=== PATIENT | male | born 1970 | race Caucasian/White ===

== ENCOUNTER 2024-12-02 08:45 | Outpatient (CLI) | payer OTHER, SELFPAY ==
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
--- OUTSIDE RECORDS SUMMARY | 2024-12-02 09:00 | XMS_ITS | Clinical Summary ---
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 Gender Identity Not on file Sexual Orientation Not on file Plan of Treatment Health Maintenance Due Date Last Done Comments Hepatitis C Virus (HCV) Screening 1970 Hepatitis B Immunization (1 of 3 - 19+ 3-dose series) 10/16/1991 Colonoscopy 2017 Colorectal Cancer Screening 2017 Cologuard 2022 Immunochemical Fecal Occult Blood 2022 Pneumococcal Immunization (5 0+ years) (1 of 1 - PCV) 2022 Zoster Immunization (1 of 2) 2022 Influenza Immunization (#1) 2024 06/16/2020 SARS-COV-2 Immunization (3 - 2023- season) 2024 09/25/2020, 08/25/2020 Respiratory Syncytial Virus (RSV) Immunization (Adult) (1 - 1-dose 75+ series) 10/16/2047 DTaP/Tdap/Td Immunization Discontinued 06/16/2020 TdaP Immunization Completed 06/16/2020 Meningococcal Immunization (ACWY) Aged Out No longer eligible based on patient's age to complete this topic Pneumococcal Immunization Combined Aged Out No longer eligible based on patient's age to complete this topic Rotavirus Immunization Aged Out No lo nger eligible based on patient's age to complete this topic
--- OUTSIDE RECORDS SUMMARY | 2024-12-02 09:00 | XMS_ITS | CONTINUITY OF CARE DOCUMENT ---
Author Name yandel humphries Address Unknown Organization [facility] Address [address] [place] [address] Phone [phone] Care Team Providers Care Paralegal Internship Name Role Phone Kristian Foley MD Unavailable INSURANCE PROVIDERS Payer name Policy type / Coverage type Sherry red democrat ID [facility] [id number] Other [id number]
--- NOTE | 2024-12-02 11:15 | NEURO_ITS ---
Impression: # Diabetic complains of numbness of lower extremities. ? # Abnormal motor/sensory Nerve Conduction Study with mild asymmetry. ? # Normal needle/EMG exam. ? # Clinical correlation recommended. Nerve Conduction Studies Anti Sensory Summary Table ?Stim Site NR Peak (ms) P-T Amp (?V) Site1 Site2 Delta-P (ms) Dist (cm) Randy (m/s) Left Sup Fibular Anti Sensory (Ant Lat Mall)??? NO RESPONSE 14 cm NR 14 cm Ant Lat Mall 16.0 Right Sup Fibular Anti Sensory (Ant Lat Mall) 14 cm ? 4.3 7.1 14 cm Ant Lat Mall 4.3 16.0 37 Left Sural Anti Sensory (Lat Mall)??? NO RESPONSE Calf NR Calf Lat Mall 16.0 Right Sural Anti Sensory (Lat Mall) Calf ? 4.2 11.9 Calf Lat Mall 4.2 16.0 38 Motor Summary Table ?Stim Site NR Onset (ms) O-P Amp (mV) Site1 Site2 Delta-0 (ms) Dist (cm) Randy (m/s) Left Peroneal Motor (Vastus Med) Ankle ? 3.6 3.2 Popit Ankle 10.2 43.0 42 Popit ? 13.8 2.1 Right Peroneal Motor (Vastus Med) Ankle ? 3.7 1.2 Popit Ankle 10.1 43.0 43 Popit ? 13.8 0.6 Left Tibial Motor (Abd Amaro Brev) Ankle ? 4.1 4.5 Knee Ankle 10.0 43.0 43 Knee ? 14.1 2.4 Right Tibial Motor (Abd Amaro Brev) Ankle ? 3.8 3.0 Knee Ankle 10.2 43.0 42 Knee ? 14.0 3.3 F Wave Studies ?NR F-Lat (ms) L-R F-Lat (ms) Left Peroneal (Mrkrs) (EDB) ? 57.78 0.00 Right Peroneal (Mrkrs) (EDB) ? 57.78 0.00 Left Tibial (Mrkrs) (Abd Hallucis) ? 56.34 0.13 Right Tibial (Mrkrs) (Abd Hallucis) ? 56.21 0.13 EMG ?Side Muscle Nerve Root Ins Act Fibs Amp Dur Recrt Comment Right AntTibialis Dp Br Fibular L4-5 Nml Nml Nml Nml Nml Right Gastroc Tibial S1-2 Nml Nml Nml Nml Nml Right Fibularis Long Sup Br Fibular L5-S1 Nml Nml Nml Nml Nml Right Flex Dig Long Tibial L5-S2 Nml Nml Nml Nml Nml Right Ext Dig Brev Dp Br Fibular L5, S1 Nml Nml Nml Nml Nml Right QuadratusFem QuadFemoris L4-5, S1 Nml Nml Nml Nml Nml Left AntTibialis Dp Br Fibular L4-5 Nml Nml Nml Nml Nml Left Gastroc Tibial S1-2 Nml Nml Nml Nml Nml Left Fibularis Long Sup Br Fibular L5-S1 Nml Nml Nml Nml Nml Left Flex Dig Long Tibial L5-S2 Nml Nml Nml Nml Nml Left Ext Dig Brev Dp Br Fibular L5, S1 Nml Nml Nml Nml Nml Left QuadratusFem QuadFemoris L4-5, S1 Nml Nml Nml Nml Nml MTDD
== END 2024-12-02 08:46 | disposition home or self-care (01) ==
PROVIDERS: PCP Internal Medicine; Visit Provider Nurse Practitioner Adult Health
DX: G62.9 Polyneuropathy, unspecified (principal); R94.130 Abnormal response to nerve stimulation, unspecified; G57.93 Unspecified mononeuropathy of bilateral lower limbs
CPT/HCPCS: 95886; 95910

== ENCOUNTER 2025-05-12 00:16 | Day surgery (SDC) | payer OTHER, SELFPAY ==
[2025-05-04 09:53] VITALS: BMI 26.9
--- OUTSIDE RECORDS SUMMARY | 2025-05-12 00:18 | XMS_ITS | Clinical Summary ---
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 Gender Identity Not on file Sexual Orientation Not on file Plan of Treatment Health Maintenance Due Date Last Done Comments Hepatitis C Virus (HCV) Screening 1970 Hepatitis B Immunization (1 of 3 - 19+ 3-dose series) 10/16/1991 Cologuard 2017 Colonoscopy 2017 Colorectal Cancer Screening 2017 Immunochemical Fecal Occult Blood 2017 Pneumococcal Immunization (5 0+ years) (1 of 1 - PCV) 2022 Zoster Immunization (1 of 2) 2022 Influenza Immunization (#1) 2025 06/16/2020 SARS-COV-2 Immunization (3 - season) 2025 09/25/2020, 08/25/2020 Respiratory Syncytial Virus (RSV) Immunization (Adult) (1 - 1-dose 75+ series) 10/16/2047 DTaP/Tdap/Td Immunization Discontinued 06/16/2020 TdaP Immunization Completed 06/16/2020 Human Papillomavirus (HPV) Immunization Aged Out No longer eligible based on patient's age to complete this topic Meningococcal Immunization (ACWY) Aged Out No longer eligible based on patient's age to complete this topic Rotavirus Immunization Aged Out No lo nger eligible based on patient's age to complete this topic
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
[2025-05-12 06:47] VITALS: BP 114/79; PULSE 90; RESP 18; TEMP 36.2; O2SAT 97
[2025-05-12] MEDS: LACTATED RINGERS 1,000 ML 150 ML IV CONT (06:56)
--- NOTE | 2025-05-12 07:24 | PM.IMHP ---
H&P: HPI History of Present Illness Date/Time: 05/12/25 07:24 Chief Complaint: Screening for colorectal cancer Narrative: This is a 54-year-old man who presents for his 1st colonoscopy. He denies any hematochezia or melena. He occasionally has a small amount of blood on the toilet paper when wiping. He denies any family history of colon cancer. Review of Systems Review of Systems: All systems reviewed & are unremarkable except as noted in HPI and below Constitutional: Constitutional: Denies chills, Denies fever(s), Denies headache(s) and Denies weight loss Eyes: Eyes: Denies change in vision ENT: Denies dizziness, Denies headache(s), Denies neck mass and Denies throat swelling Cardiovascular: Cardiovascular: Denies chest pain, Denies lightheadedness and Denies dyspnea Respiratory: Respiratory: Denies cough, Denies dyspnea and Denies wheezing Gastrointestinal: Gastrointestinal: Denies abdominal pain, Denies change in bowel habits, Denies nausea and Denies vomiting Genitourinary: Genitourinary: Denies hematuria and Denies dysuria Musculoskeletal: Musculoskeletal: Reports as per HPI Integumentary/Breasts: Skin/Breast: Reports as per HPI Neurologic: Denies dizziness and Denies headache(s) Allergic/Immunologic: Allergic/Immunologic: Denies throat swelling and Denies wheezing PMFSH Past Medical History Medical History Diabetes Eustachian tube disorder Hypertension Neuralgia Surgical History Surgical History H/O spinal fusion Family History Family History Father Diabetes mellitus Social History Social History (Updated 03/13/24 @ 09:52 by Nazia Gordon MA) Smoking status: Never smoker Alcohol intake: current Alcohol use details: occasional Substance use: never Do You Feel Safe in your Home?: Yes Lack of Transportation: No Lack of Food: Never True Current Housing: I Have Housing Concerned About Future Housing: No Difficulty Paying Gas/Electric Bills: No Difficulty Paying for Meds: No Currently Unemployed: No Education: High School Diploma/GED Difficulty w/ Childcare or Family Care: No Living arrangements: with family Occupation/Education: occupation Gender identity (if verbalized by the patient): Male Sexual Orientation (if Verbalized by the Patient): Straight or Heterosexual Spiritual care concerns: No Meds Home Medications and Allergies Home Medications ?Medication ?Instructions ?Recorded ?Confirmed ?Type atorvastatin 40 mg tablet 40 mg PO DAILY 03/29/23 05/12/25 History metformin 500 mg tablet,extended 500 mg PO BID 03/29/23 05/12/25 History release 24 hr naproxen 500 mg tablet 500 mg PO BID 03/13/24 05/12/25 History tirzepatide 2.5 mg/0.5 mL 7.5 mg subcut WEEKLY 03/13/24 05/12/25 History subcutaneous pen injector (Rosie) pregabalin 50 mg capsule 50 mg PO Q12H 05/04/25 05/12/25 History Allergies Allergy/AdvReac Type Severity Reaction Status Date / Time No Known Allergies Allergy Verified 05/12/25 06:45 Vital Signs Vital Signs - 24 hr 05/12/25 06:47 Temperature 97.2 F L Pulse Rate 90 Respiratory Rate 18 Blood Pressure 114/79 Pulse Oximetry 97 Oxygen Delivery Room Air Exam Const: General: no acute distress and alert Orientation/consciousness: patient oriented x3 HENMT: Head: normocephalic and atraumatic Ears: hearing grossly normal bilaterally Face/Nose/Sinus: Normal nares present Mouth: Yes Normal oral and palatal mucosa present Eyes: Periorbital: periorbital findings normal Sclera: sclerae normal EOM: EOMs intact bilaterally Neck: Neck: normal visual inspection, no lymphadenopathy and trachea midline Chest: Chest palpation & inspection: normal inspection of the chest Resp: Effort & Inspection: normal respiratory effort Auscultation: clear to auscultation bilaterally Cardio: Jugular venous distension: no JVD Rate: regular rate Rhythm: regular rhythm Heart sounds: S1 normal heart sound present and S2 normal heart sound present Peripheral pulses: Peripheral pulses 2+ throughout GI: Inspection: normal to inspection GI Palp: Yes Soft to palpation, No Tenderness to palpation present (GI), No Guarding due to palpation present (GI) and No Rebound tenderness present Percussion: Yes normal to percussion Auscultation: normal bowel sounds : General: Yes no CVA tenderness Back/Spine/Pelvis: Back: no CVA tenderness Neuro: General: patient oriented x3, no focal motor deficits and CN's II-XI intact bilaterally Cognition (Neuro): normal cognition Speech: normal speech Motor exam (neuro): 5/5 motor strength present throughout Extrem: General: capillary refill normal and no clubbing, cyanosis or edema Assessment and Plan Assessment and plan (1) Screening for colorectal cancer: Code(s): Z12.11 - Encounter for screening for malignant neoplasm of colon; Z12.12 - Encounter for screening for malignant neoplasm of rectum Status: Acute Assessment and Plan: I have recommended colonoscopy. I have discussed the procedure, risks, benefits, and alternatives. Questions were answered. Patient is agreeable to proceed.
--- NOTE | 2025-05-12 07:37 | WPDANESEPPF ---
Anes - Initial Pre Proc Eval Procedure: Operation Date: 05/12/25 08:00 Proposed Procedures p Screening Colonoscopy - Devin Gr DO Date/Time: 05/12/25 07:37 Surgeon: Devin Gr DO Pre Op Diagnosis: Neoplasm screening Patient Data Age: 54 Gender: M Height: 1.78 m Weight: 86.1 kg Last Vital Signs Temp 97.2 F L 05/12/25 06:47 Pulse 90 05/12/25 06:47 Resp 18 05/12/25 06:47 BP 114/79 05/12/25 06:47 Pulse Ox 97 05/12/25 06:47 O2 Del Method Room Air 05/12/25 06:47 Allergies Allergy/AdvReac Type Severity Reaction Status Date / Time No Known Allergies Allergy Verified 05/12/25 06:45 Home Medications ?Medication ?Instructions ?Recorded ?Confirmed ?Type atorvastatin 40 mg tablet 40 mg PO DAILY 03/29/23 05/12/25 History metformin 500 mg tablet,extended 500 mg PO BID 03/29/23 05/12/25 History release 24 hr naproxen 500 mg tablet 500 mg PO BID 03/13/24 05/12/25 History tirzepatide 2.5 mg/0.5 mL 7.5 mg subcut WEEKLY 03/13/24 05/12/25 History subcutaneous pen injector (Joseunbekahro) pregabalin 50 mg capsule 50 mg PO Q12H 05/04/25 05/12/25 History Laboratory Tests 05/12/25 06:56 POC Capillary Glucose 130 H mg/dl (65-105) Patient hx anesthesia problems: none Family hx anesthesia problems: none Results Review: All pre-operative results and documents have been reviewed as part of the pre-operative evaluation. [facility] Past Medical History Medical History Neuralgia Hypertension Eustachian tube disorder Diabetes Surgical History Surgical History H/O spinal fusion Family History Family History Father Diabetes mellitus Social History Social History Smoking status: Never smoker Alcohol intake: current Alcohol use details: occasional Substance use: never Do You Feel Safe in your Home?: Yes Lack of Transportation: No Lack of Food: Never True Current Housing: I Have Housing Concerned About Future Housing: No Difficulty Paying Gas/Electric Bills: No Difficulty Paying for Meds: No Currently Unemployed: No Education: High School Diploma/GED Difficulty w/ Childcare or Family Care: No Living arrangements: with family Occupation/Education: occupation Gender identity (if verbalized by the patient): Male Sexual Orientation (if Verbalized by the Patient): Straight or Heterosexual Spiritual care concerns: No Anes - Eval Final PreProcedure Day of Procedure 05/12/25 07:37 Patient weight: normal Lungs: normal air movement Airway: Mallampati scale class II Neurological: alert and oriented Last oral intake: >/= 8 hours ASA classification: III Emergent: no Anesthetic plan: proceed Anesthesia type and monitoring: general GIVS and standard monitoring Results Review: All pre-operative results and documents have been reviewed as part of the pre-operative evaluation. Hyperlipidemia, DM fsbs 130, active w 1-2 fos, no cp or sob. Informed Consent: The patient's anesthetic plan and its attendant risks and benefits were discussed with the patient/family/POA. Questions were solicited and answers provided to the satisfaction of the patient/family/POA.
--- NOTE | 2025-05-12 08:29 | S_PTH ---
PATIENT: Steve Jones LOC: [facility] #:[id number] AGE/SX: 54/M ROOM: RE05/12/[address]: Devin Gr DO : 1970 BED: DIS: 05/12/2025 SPEC #: [id number] RECD: 05/12/25 09:17 STATUS: RADHA REKelsey #: [id number] DUONG: 05/12/25 08:[address]: Devin Gr DEPT: [facility] Surgical RECD BY: Sabina Vargas ENTERED: 05/12/25 09:17 SP TYPE: Surgical OTHR DR: Craig Rivera, Tissues: A - Colon Polypectomy Procedures: Hematoxylin and Eosin Stain Gross and Microscopic Level 4
[2025-05-12 08:34] VITALS: BP 100/71; PULSE 97; RESP 20; O2SAT 98
[2025-05-12 08:44] VITALS: BP 112/72; PULSE 91; RESP 17; O2SAT 99
[2025-05-12 08:54] VITALS: BP 126/84; PULSE 83; RESP 20; O2SAT 100
== END 2025-05-12 09:02 | disposition home or self-care (01) ==
PROVIDERS: PCP Internal Medicine; Visit Provider Surgery
PROC: 0DJD8ZZ Inspection of Lower Intestinal Tract, Via Natural or Artificial Opening Endoscopic (ICD-10-PCS; CPT 45378; principal; 2025-05-12 08:00)
DX: Z12.11 Encounter for screening for malignant neoplasm of colon (principal); K63.5 Polyp of colon; K57.30 Diverticulosis of large intestine without perforation or abscess without bleeding; E11.9 Type 2 diabetes mellitus without complications
CPT/HCPCS: 45380; 82948; 88305; J2704; J7120

== ENCOUNTER 2025-05-12 09:21 | Outpatient (CLI) | payer OTHER, SELFPAY ==
--- NOTE | ~2025-05-12 | XR_ITS ---
EXAMINATION: XR shoulder LT min 2V, 05/12/2025 9:35 CDT HISTORY: Pain in lt shoulder, X 2 YRS COMPARISON: No comparisons available. Findings: No acute fracture or malalignment. No significant degenerative changes. Soft tissues unremarkable. Impression: No acute fracture or malalignment. Reviewed, dictated and finalized at location P. Impression: No acute fracture or malalignment.
--- OUTSIDE RECORDS SUMMARY | 2025-05-12 10:17 | XMS_ITS | Clinical Summary ---
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
--- OUTSIDE RECORDS SUMMARY | 2025-05-12 10:17 | XMS_ITS | Patient Health Record ---
Author Organization [facility] Address [address] [place] [address] Care Team Providers Care Supervisor [employer] Workers Name Role Phone Craig Rivera Primary Care Provider Chuy Brooke Unavailable [phone] REASON FOR REFERRAL No Information MEDICATIONS Medication SIG (Take, Route, Fr equency, Duration) Notes Start Date End Date Status predniSONE 20 MG 1 tablet Orally twic e a day for 7 days 12/14/2020 Active Percocet 5-325 MG 1 tablet as needed O rally every 4 hrs for 7 days 12/16/2020 Not-Takin g Gabapentin 600 MG 1 tablet Orally TID for 30 day(s) 01/31/2021 Active Mimi Active predniSONE 10 MG 1 tablet Orally q 12 hours for 7 days 01/11/2021 Not-Taking Gabapentin 300 1 tab by mouth tid 01/11/2021 Active PROBLEMS Problem Type ICD Code Onset Dates Problem Status W/U Status Risk SNOMED Code Notes Problem Spondylolisthesis at L4-L5 level (M43.16) Active confirmed Acquired spondylolisthesis (835134519) Problem Lumbar degenerative disc disease (M51.36) Active confirmed Degeneration of lumbar intervertebral disc (33064987) PLAN OF TREATMENT Pending Test Test Name Order Date Lumbar Ramsay Laminectomy and Transforamin al Lumbar Interbody Fusion 11/18/2020 Next Appt Details Provider Name:Ivory Heide guevara, 05/20/2025 01:30:00 PM, [address], [place], [address], Insurance Providers Payer Name Payer Address Payer Phone Subscriber Number Group Number Insured Name Patient Relationship to Insured Coverage Start Date Coverage End Date [facility] [address] [address] [place] [address] [phone] [id number] Steve Jones Self - patient is the insured 2024 MEDICAL (GENERAL) HISTORY Surgical History Surgery Date(Month/Year) Right knee ACL Left knee meniscus
== END 2025-05-12 09:22 | disposition home or self-care (01) ==
PROVIDERS: PCP Internal Medicine
DX: M25.512 Pain in left shoulder (principal)
CPT/HCPCS: 73030